=== PATIENT | male | born 1960 | race Caucasian/White ===

== ENCOUNTER 2017-02-19 20:44 | Inpatient (IN) | payer BC ==
--- NOTE | ~2017-02-19 | HP ---
Unit #: [id number] #: [id number] Patient: LEON CHUA JR [id number] [facility] [address]. [place], [place] [address] [id number] MR#: [id number] NAME: LEON CHUA JR ROOM: [facility] Age: 56 Sex: M Admission Date: 02/19/2017 : 1960 Attending Physician: Jn Grimm M.D. Primary Care Physician: Dede Ashby M.D. HISTORY AND PHYSICAL DIAGNOSES 1. Hypotension. 2. Questionable sepsis. 3. Vascular occlusion. HISTORY OF PRESENT ILLNESS The patient has been having one year of progressive hip pain. The patient has been having significant worsening over the past week or so. He is unable to give us a really clear history of exactly when it starts; however, it is intermittent. It hurts worse when he walks compared to when he stands up. He has still been working recently; however, sometimes he has found it very difficult after lifting at work. The patient has been presented to [facility] emergency room following an episode where he had been feeling tired and weak. Blood pressure has been low. Patient has been having significant abdominal pain for several weeks. He thought it was more severe today. He has a history of degenerative hip disorder. He did not go to a doctor regularly. His last hospitalization was in [facility] for Crohn disease followup. He denies any sort of changes in his stool. He states this afternoon that pain has been very severe. The blood pressure was 67 systolic, to 48 mm diastolic on presentation to the emergency room. Patient was transferred to [facility] as documented before. Patient is a chronic smoker at two packs per day. Dr. Chowdhury has been consulted. REVIEW OF SYSTEMS Significant for weakness, dizziness, shortness of breath, cough, wheezing, some yellow sputum, negative for dizziness, positive for back pain, positive for abdominal/hip pain. Otherwise, a 12-point review of systems is negative except as per the history of present illness. PAST MEDICAL HISTORY Significant for diabetes, COPD, and is also positive for hyperlipidemia, hypertension, GERD, colon polyps, sleep apnea, and chronic back pain. PAST SURGICAL HISTORY Significant for cervical fusion, Achilles tendon repair, and right foot surgery. FAMILY HISTORY Noncontributory. SOCIAL HISTORY Unit #: [id number] #: [id number] Patient: LEON CHUA JR Patient is a nondrinker. No history of polysubstance use. 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 The patient smokes two packs per day. Works second shift. MEDICATIONS Unobtainable at this time. PHYSICAL EXAMINATION VITAL SIGNS: Include T. current 99, pulse 111, blood pressure 96/56, and the sat 95% on room air. HEENT: Extraocular movements intact. CHEST: Clear to auscultation bilaterally. CARDIOVASCULAR: Regular rate. No gallop. ABDOMEN: Soft, nontender, and nondistended. EXTREMITIES: Show no evidence of edema. Dorsalis pedis pulses are palpable bilaterally currently. DIAGNOSTIC STUDIES LABORATORY: Urinalysis shows urine dipstick greater than 1000. The patient's sodium is 130, potassium 4.8, BUN and creatinine is 29/1.8, calcium is 8.8, AST is 45, and ALT is 57. White count 11.2, hemoglobin 15.9, and platelets of 125. IMAGING: Chest x-ray shows no evidence of . CT head is negative. Subcarinal lymphadenopathy appears to be increased on CT. There appears to be some atelectasis, left lung base. ASSESSMENT AND PLAN 1. Hypotension, likely dehydration. 2. Possible infection including pneumonia. Patient is on antibiotics. Glucoses are being managed. We are going to check lactic acid and continue to trend it. Procalcitonin. Check for possible infection. Dr. Chowdhury will see for possible vascular occlusion of bilateral lower extremities. Patient will have some analgesia for pain. Will continue to monitor oxygen carefully as patient also has obstructive sleep apnea. Thank you very much for this admit. Please page me at [phone] for any questions. Dictated by Vandana Stearns TD: 02/20/2017 05:12 JOB #: [id number] Unit #: [id number] #: [id number] Patient: LEON CHUA JR HISTORY AND PHYSICAL Page 1 of 1 X Kai Wallis MD HISTORY AND PHYSICAL
--- NOTE | ~2017-02-19 | BMI ---
[facility] Nutrition Therapy DATE: 02/20/17 Patient: LEON Saravia HARSHIL SWAN Physician: SOPHIE Address: [address] Room/Bed: [address], Zip: [place] [address] Admit Date: 02/19/17 Date of : 56 Height: 5 10 Weight: 289 131.5 HIGH BMI NOTE: DX: 56 Y.O. MALE ADMITTED FOR SEPSIS ANTHROPOMETRICS: 5'10", WT: 289# (131 KG), BMI: 41.5 DIET: CONSISTENT CARBOHYDRATE RECOMMENDATIONS: 1. RECOMMEND TO ADD HEART HEALTHY DIET TO PROMOTE GRADUAL WEIGHT LOSS TOWARDS HEALTHY BMI (19.0-25.0) OR +/-10%IBW RD WILL F/U PER PROTOCOL Respectfully, RONDA GARCIA MS, RD, LD [facility] cc: client file
--- NOTE | ~2017-02-19 | DS ---
Unit #: [id number] #: [id number] Patient: LEON CHUA JR [id number] [facility]. [place], [place] [address] [id number] I MR#: [id number] NAME: LEON CHUA ROOM: 314 Age: 56 Sex: M Admission Date: 02/19/2017 : 1960 Discharge Date: 02/21/2017 Attending Physician: Jn Grimm M.D. Primary Care Physician: Dede Ashby M.D. DISCHARGE SUMMARY ADMISSION DIAGNOSES Right pelvic pain, dehydration, hypotension, and elevated procalcitonin. HISTORY OF PRESENT ILLNESS This is a 48-year-old gentleman with a history of degenerative hip disease. The patient was transferred here from [facility] with a presentation of low blood pressure, fatigue, and he has a history of progressive hip pain. The patient was unable to give us a very clear history of exactly when it started, however it is intermittent and it hurts with any walks when compared when he stands up. He has been working recently. He found very difficult to lift at work. The patient had this more severe hip pain. He does not go to his doctor regularly. Last hospitalization was in [facility] for Crohn disease. Follow up approximately 2 years ago. He denies any sort of changes in his stool; however, the pain was very severe. Blood pressure was 67 systolic, 48 diastolic on presentation to emergency room. The patient is a smoker two packs a day. Dr. Chowdhury was consulted. Upon examining the patient, Dr. Chowdhury requested that he follows up with him as an outpatient. The patient had an elevated procalcitonin, TSH, and serum cortisol were within normal limits for afternoon. The patient is to follow up with Dr. Chowdhuyr as an outpatient. He also is to follow up with his primary care doctor within 2 to 3 days for evaluation by a urologist. He has had ultrasound of the inguinal region, per patient which did not show any incarceration or any bowel blockage, also did not show any significant hydronephrosis. The patient should have this evaluation as an outpatient. His pain gradually improved throughout his hospital stay. Workup for etiology is good other than his known right hip disease. He does not have any known hip fracture, however he does have osteoarthritis of the hip bone now. DISCHARGE MEDICATIONS Combivent inhaler use p.r.n., Lyrica 150 mg t.i.d., Topamax 50 mg b.i.d., Prozac 40 mg daily, Mirapex 1.5 mg at bedtime, Ambien 10 mg at bedtime p.r.n., Valium 5 mg at bedtime p.r.n., metoprolol tartrate 12.5 mg twice daily, lisinopril 10 mg daily, Mobic 15 mg daily, Doss 10/325 q.8 hours p.r.n. pain, Omnicef 300 mg p.o. b.i.d. for 5 days. FOLLOWUP The patient is to follow up with primary care doctor within 1 week and is to follow up with Urology as referred to by his primary care doctor. Thank you very much. Please page me at [phone] if you have any questions. Unit #: [id number] #: [id number] Patient: LEON CHUA JR R Dictated by... Vandana Stearns/candida TD: 02/24/2017 08:44 JOB #: [id number] DISCHARGE SUMMARY Page 1 of 1 X Kai Wallis MD X DISCHARGE SUMMARY
[~2017-02-19 20:44] MED LIST: AMBIEN10 MG PO; LISINOPRIL10 MG PO; METOPROLOL TAR25 MG PO; MIRAPEX1.5 MG PO; MOBIC15 MG PO; PRAVASTATIN SOD20 MG PO; PROZAC40 MG PO; TOPAMAX50 MG PO
[2017-02-20 05:09] LABS: URINE SOURCE CLEAN CATCH
[2017-02-20 05:19] LABS: URINE APPEARANCE CLEAR; URINE BILIRUBIN NEG (NEG); URINE BLOOD 1+ (NEG); URINE COLOR YELLOW; URINE GLUCOSE >1000 MG/DL (NEG); URINE KETONE NEG (NEG); URINE LEUKOCYTE ESTERASE NEG (NEG); URINE NITRATE NEG (NEG); URINE PROTEIN NEG (NEG); URINE UROBILINOGEN 0.2 MG/DL (NEG)
[2017-02-20 05:21] LABS: U HYALINE CASTS AUWI 0-2 /[LPF]; URINE BACTERIA AUWI NEG (NEGATIVE); URINE SQUAMOUS EPITHELIAL CELL NONE SEEN /[HPF]; UWBCS1 AUWI 0-2 (0-5)
[2017-02-20 07:20] LABS: BASOPHIL% 0.3 % (0-2.5); HEMATOCRIT 40.6 % (38.0-50.0); HEMOGLOBIN 13.4 gm/dL (13.0-16.0); LYMPHOCYTE# 1.4 X10e3 (1.0-3.5); LYMPHOCYTE% 20.3 % (17.0-45.0); MEAN CELL VOLUME 92.3 FL (83-96); MEAN CORPUSCULAR HEMOGLOBIN 30.5 PG (28-34); MEAN PLATELET VOLUME 8.9 FL (6.5-11.5); MONOCYTE# 0.5 X10e3 (0-1.0); MONOCYTE% 7.1 % (3.0-12.0); NEUTROPHIL# 5.1 X10e3 (1.5-7.1); NEUTROPHIL% 72.3 % (40-75); PLATELET COUNT 114 X10e3 (140-420); RED CELL DISTRIBUTION WIDTH 14.7 % (11.0-15.5); WHITE BLOOD COUNT 7.1 X10e3 (4.0-10.5)
[2017-02-20 07:24] LABS: DIFF IND NO
[2017-02-20 08:20] LABS: BUN/CREATININE RATIO 23.07; CALCIUM SERUM 7.6 mg/dL (8.4-10.2); CREATININE SERUM 1.3 mg/dL (0.6-1.4); GLOM FILT RATE Estimated 60.2 mL/min (>60); POTASSIUM 4.5 mmol/L (3.5-5.1)
[2017-02-21 06:16] LABS: BASOPHIL# 0.1 X10e3 (0-0.3); BASOPHIL% 0.4 % (0-2.5); EOSINOPHIL% 0.1 % (0.0-7.0); HEMATOCRIT 39.2 % (38.0-50.0); LYMPHOCYTE# 3.9 X10e3 (1.0-3.5); LYMPHOCYTE% 28.3 % (17.0-45.0); MEAN CELL VOLUME 91.8 FL (83-96); MEAN CORPUSCULAR HEMOGLOBIN 30.5 PG (28-34); MEAN CORPUSCULAR HGB CONC 33.2 g/dL (30-36); MONOCYTE# 1.3 X10e3 (0-1.0); MONOCYTE% 9.3 % (3.0-12.0); NEUTROPHIL# 8.6 X10e3 (1.5-7.1); NEUTROPHIL% 61.9 % (40-75); PLATELET COUNT 146 X10e3 (140-420); RED BLOOD COUNT 4.27 X10e (3.90-5.60); RED CELL DISTRIBUTION WIDTH 14.5 % (11.0-15.5)
[2017-02-21 06:29] LABS: DIFF IND NO; WHITE BLOOD COUNT 13.8 X10e3 (4.0-10.5)
[2017-02-21 07:37] LABS: BUN/CREATININE RATIO 26.66; CALCIUM SERUM 8.1 mg/dL (8.4-10.2); CREATININE SERUM 0.9 mg/dL (0.6-1.4); GLOM FILT RATE Estimated 93.8 mL/min (>60); POTASSIUM 4.5 mmol/L (3.5-5.1)
[2017-02-21 08:32] LABS: THYROID STIMULATING HORMONE 0.47 uIU/ml (0.34-5.60)
[2017-02-21] MEDS ORDERED: OMNICEF300 M1 PO (21:43)
[2017-02-21] MEDS ORDERED: LISINOPRIL10 MG PO (21:44)
[2017-02-21] MEDS ORDERED: COMBIVENT RESPIM4 GM (21:48)
== END 2017-02-21 22:42 | disposition home or self-care (01) | DRG 872 ==
LOC: CICCU2 21:00 → UNDOADMIN 21:36 → C3A PCU 02-20 17:02
PROVIDERS: Internal Medicine Pulmonary Disease
DX: A41.9 Sepsis, unspecified organism (principal); Z68.41 Body mass index [BMI] 40.0-44.9, adult; E86.0 Dehydration; J44.9 Chronic obstructive pulmonary disease, unspecified; E66.01 Morbid (severe) obesity due to excess calories; F17.200 Nicotine dependence, unspecified, uncomplicated; R10.9 Unspecified abdominal pain; M16.10 Unilateral primary osteoarthritis, unspecified hip; I99.8 Other disorder of circulatory system
CPT/HCPCS: 80048; 81003; 82308; 82533; 82947; 83605; 84443; 85025; 85730; 87040; 94640; 94760; J1644; J1815; J2543